=== PATIENT | female | born 1985 | race Caucasian/White ===

== ENCOUNTER 2017-12-10 20:21 | Emergency (ER) | payer OTHER ==
[2017-12-10] MEDS: IBUPROFEN 600 MG TAB PO (22:57)
== END 2017-12-11 00:56 | disposition home or self-care (01) ==
LOC: FTE 12-11 00:56
DX: S90.122A Contusion of left lesser toe(s) without damage to nail, initial encounter (principal); W22.8XXA Striking against or struck by other objects, initial encounter; Y92.9 Unspecified place or not applicable
CPT/HCPCS: 73660; 99283-25

== ENCOUNTER 2018-01-08 07:08 | Emergency (ER) | payer OTHER ==
[2018-01-08] MEDS: KETOROLAC 30 MG INJ IM (08:33)
== END 2018-01-08 08:35 | disposition home or self-care (01) ==
LOC: FTE 07:08
DX: M54.41 Lumbago with sciatica, right side (principal)
CPT/HCPCS: 72100; 81025; 96372; 99284-25